=== PATIENT | male | born 1975 | race Caucasian/White ===

== ENCOUNTER 2020-09-26 13:17 | Emergency (ER) | payer BC ==
[~2020-09-26] VITALS: Ht 180.3 cm; Wt 72.6 kg
[2020-09-26 13:43] LABS: ABSOLUTE BASOPHILS 0.1 thou/uL (0.0-0.2); ABSOLUTE EOSINOPHILS 0.5 thou/uL (0.0-0.7); ABSOLUTE LYMPHOCYTES 1.8 thou/uL (0.8-5.3); ABSOLUTE MONOCYTES 0.7 thou/uL (0.0-1.2); ABSOLUTE NEUTROPHILS 3.2 thou/uL (1.6-8.1); BASOPHILS 0.8 %; HEMATOCRIT 46.2 % (42.0-52.0); HEMOGLOBIN 15.8 gm/dL (14.0-18.0); LYMPHOCYTES 29.1 %; MCH 30.7 pg (26.0-34.0); MCHC 34.3 g/dL (28.0-37.0); MCV 89.4 fL (80.0-100.0); MONOCYTES 11.1 %; MPV 8.5 fl. (7.2-11.1); NUCLEATED RBCS 0 /100WBC; PLATELET COUNT* 219 thou/uL (150-400); RBC 5.16 mil/uL (4.50-6.00); RDW-CV 12.9 % (10.5-14.5); WBC 6.3 thou/uL (4.0-11.0)
[2020-09-26 13:53] LABS: CALCIUM 8.9 mg/dL (8.5-10.1); CREATININE 1.1 mg/dL (0.6-1.3)
[2020-09-26 14:04] LABS: ALBUMIN 4.1 g/dL (3.4-5.0); MAGNESIUM 2.3 mg/dL (1.8-2.4); TOTAL BILIRUBIN 1.5 mg/dL (<0.1-1.0); TOTAL PROTEIN 7.9 g/dL (6.4-8.2)
--- NOTE | 2020-09-26 16:04 | EKG ---
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[facility] : 1975 Requested By: Kunal Swenson Order Number: [id number] MD: Wali Gerber Measurements Intervals [place] Rate: 68 P: 21 FL: 182 QRS: 35 QRSD: 108 T: 50 QT: 416 QTc: 443 Interpretive Statements Sinus rhythm Compared to ECG 09/26/2020 13:22:56 No significant changes Electronically Signed On 09-26-2020 16:03:55 CDT by Wali Gerber [email or web address] <ELECTRONICALLY SIGNED> By: Wali Gerber MD, [facility] 09/26/20 1603 1516 1516 Wali Gerber MD, [facility] /EPI
--- NOTE | 2020-09-26 16:04 | EKG ---
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
[2020-09-26 17:00] VITALS: BP 130/84
== END 2020-09-26 17:00 | disposition home or self-care (01) ==
LOC: M.ERS 13:17
PROVIDERS: Emergency Medicine Emergency Medical Services
DX: R07.89 Other chest pain (principal); R61 Generalized hyperhidrosis; R20.0 Anesthesia of skin; M25.512 Pain in left shoulder